=== PATIENT | male | born 1950 | race Caucasian/White ===

== ENCOUNTER 2017-11-28 07:29 | Inpatient (IN) | payer MEDICARE, OTHER ==
[2017-11-28] VITALS (17 sets, daily range): BP systolic 102–117; BP diastolic 51–84
[~2017-11-28] VITALS: Ht 170.2 cm; Wt 70.5 kg
[2017-11-28] MEDS ORDERED: normal saline 1000ML IV soln IV ONE (07:50)
[2017-11-28] MEDS ORDERED: LORazepam 2 mg/ml vial IV ONE (07:55)
[2017-11-28] MEDS ORDERED: metoclopramide 5 mg/ml inj IV ONE (07:55)
[2017-11-28] MEDS ORDERED: diphenhydrAMINE 50 mg/ml inj IV ONE (07:55)
[2017-11-28 08:20] LABS: BASOPHILS % (AUTO) 0 % (0-1); EOSINOPHILS # (AUTO) 0.2 X10'3 (0-0.9); EOSINOPHILS % (AUTO) 0.8 % (0-6); LYMPHOCYTES % (AUTO) 7.2 % (21-51); MEAN CORPUSCULAR HEMOGLOBIN 37.2 PG (27.0-31.0); MEAN CORPUSCULAR HGB CONC 34.8 % (33.0-36.5); MEAN CORPUSCULAR VOLUME 106.9 FL (78-98); MEAN PLATELET VOLUME 8.7 FL (7.4-10.4); MONOCYTES # (AUTO) 0.9 X10'3 (0-0.9); MONOCYTES % (AUTO) 3.2 % (2-12); NEUTROPHILS # (AUTO) 24.4 X10'3 (1.8-7.7); NEUTROPHILS % (AUTO) 88.8 % (42-75); PLATELET COUNT 331 X10'3 (140-440); RED BLOOD COUNT 1.43 X10'6 (4.70-6.10); RED CELL DISTRIBUTION WIDTH 15.1 % (11.5-14.5)
[2017-11-28 08:22] LABS: PARTIAL THROMBOPLASTIN TIME 21 SECONDS (22-32); PROTHROMBIN TIME 10.2 SECONDS (9.0-12.0)
[2017-11-28 08:33] LABS: HEMOGLOBIN 5.3 g/dl (14.0-17.9)
[2017-11-28 08:34] LABS: HEMATOCRIT 15.3 % (42.0-52.0)
[2017-11-28 08:35] LABS: WHITE BLOOD COUNT 27.5 X10'3 (4.5-11.0)
[2017-11-28 08:38] LABS: ALANINE AMINOTRANSFERASE 30 U/L (12-78); ALBUMIN 3.7 G/DL (3.4-5.0); ALKALINE PHOSPHATASE 68 IU/L (46-116); ANION GAP 19 (8-16); BILIRUBIN,TOTAL 7.1 MG/DL (0.1-1.0); BLOOD UREA NITROGEN 27 MG/DL (7-18); BUN/CREATININE RATIO 23.1 (5.4-32.0); CALCIUM 8.8 MG/DL (8.5-10.1); CHLORIDE 99 MMOL/L (99-107); CREATININE 1.17 MG/DL (0.60-1.10); GLUCOSE 243 MG/DL (70-104); SODIUM 136 MMOL/L (135-145); TOTAL CARBON DIOXIDE 17.9 MMOL/L (24-32); eGFR 63 ML/MIN
[2017-11-28 08:39] LABS: MAGNESIUM 1.7 MG/DL (1.5-2.4); TROPONIN I < 0.04 NG/ML (0.0-0.05)
[2017-11-28 08:47] LABS: LACTIC SEPSIS 9.4 MMOL/L (0.4-2.0)
[2017-11-28] MEDS ORDERED: piperacillin/tazo 3.375gm/50ml 50 ML IV ONE (08:50)
[2017-11-28] MEDS ORDERED: vancomycin/NS 1 GM ADD-VANTAGE 250 ML IV ONE (08:50)
[2017-11-28 08:51] LABS: ASPARTATE AMINO TRANSFERASE 69 U/L (10-37)
[2017-11-28] MEDS ORDERED: iohexol 300mg/ml 100ml inj. ONE (09:08)
[2017-11-28 09:23] LABS: ALBUMIN/GLOBULIN RATIO 1.2 (1.1-1.5); POTASSIUM 4.5 MMOL/L (3.5-5.1); TOTAL PROTEIN 6.9 G/DL (6.4-8.2)
[2017-11-28 09:24] LABS: NUCLEATED RED BLOOD CELLS 7 /100WBC (0-0); TOTAL CELLS COUNTED 100
[2017-11-28 09:25] LABS: RED BLOOD COUNT 1.3 X10'6 (4.70-6.10)
[2017-11-28 09:25] LABS: PLATELET ESTIMATE NORMAL
[2017-11-28 09:26] LABS: POLYCHROMASIA 2+
[2017-11-28 09:27] LABS: ANISOCYTOSIS 2+; POIKILOCYTOSIS 2+; SCHISTOCYTES FEW
[2017-11-28 09:28] LABS: TARGET CELLS FEW
[2017-11-28 09:29] LABS: BURR CELLS FEW
[2017-11-28 09:34] LABS: TOTAL IRON BINDING CAPACITY 308 UG/DL (259-388)
[2017-11-28 09:36] LABS: % IRON SATURATION 97 % (11-46); IRON 298 UG/DL (53-167)
[2017-11-28 09:51] LABS: LACTATE DEHYDROGENASE 776 U/L (85-227)
[2017-11-28 09:53] LABS: D-DIMER 1.35 MG/L FEU (0-0.50)
[2017-11-28] MEDS: normal saline 1000ml 1,000 ML IV SCH (10:32)
[2017-11-28] MEDS ORDERED: acetaminophen 325mg tablet PO PRN ×2 (10:35)
[2017-11-28] MEDS ORDERED: potassium Cl 20 mEq SR tablet PO PRN (10:35)
[2017-11-28] MEDS ORDERED: potassium Cl 40MEQ/NS 500ml 500 ML IV PRN ×2 (10:35)
[2017-11-28] MEDS ORDERED: morphine 4 MG/ML inj SYRINge IV PRN ×2 (10:35)
[2017-11-28] MEDS ORDERED: ondansetron/PF 4mg/2ml inj IV PRN (10:35)
[2017-11-28 13:07] LABS: CLARITY,URINE CLOUDY (Clear); COLOR,URINE BROWN (Yellow)
[2017-11-28 13:15] LABS: UA COLLECTION TYPE CLN CATCH MIDSTREAM
[2017-11-28 13:17] LABS: URINE AMPHETAMINE SCREEN NEGATIVE (Neg); URINE BARBITUATE SCREEN NEGATIVE (Neg); URINE BENZODIAZEPINES SCREEN NEGATIVE (Neg); URINE CANNABINOID SCREEN NEGATIVE (Neg); URINE COCAINE SCREEN NEGATIVE (Neg); URINE METHADONE SCREEN NEGATIVE (Neg); URINE OPIATE SCREEN NEGATIVE (Neg); URINE PHENCYCLIDINE SCREEN NEGATIVE (Neg)
[2017-11-28 13:21] LABS: BACTERIA,URINE FEW /HPF (Neg); RBC,URINE 0-2 /HPF (0-2); WBC,URINE 0-4 /HPF (0-4)
[2017-11-28 13:22] LABS: SQUAMOUS EPITHELIAL CELL,UR FEW /LPF (FEW)
[2017-11-28 13:24] LABS: AMORPHOUS URATES 1+
[2017-11-28] MEDS ORDERED: NO HOME MEDS (13:53)
[2017-11-29] VITALS (22 sets, daily range): BP systolic 87–132; BP diastolic 49–76
[2017-11-29 05:15] LABS: MEAN CORPUSCULAR HEMOGLOBIN 34.1 PG (27.0-31.0); MEAN CORPUSCULAR HGB CONC 34.5 % (33.0-36.5); MEAN PLATELET VOLUME 8.6 FL (7.4-10.4); PLATELET COUNT 211 X10'3 (140-440); RED BLOOD COUNT 1.66 X10'6 (4.70-6.10); RED CELL DISTRIBUTION WIDTH 19.7 % (11.5-14.5); WHITE BLOOD COUNT 21.7 X10'3 (4.5-11.0)
[2017-11-29 05:30] LABS: ALANINE AMINOTRANSFERASE 29 U/L (12-78); ALBUMIN/GLOBULIN RATIO 1.1 (1.1-1.5); ALKALINE PHOSPHATASE 54 IU/L (46-116); ANION GAP 7 (8-16); ASPARTATE AMINO TRANSFERASE 87 U/L (10-37); BILIRUBIN,TOTAL 3.4 MG/DL (0.1-1.0); BLOOD UREA NITROGEN 21 MG/DL (7-18); BUN/CREATININE RATIO 29.6 (5.4-32.0); CALCIUM 7.9 MG/DL (8.5-10.1); CHLORIDE 105 MMOL/L (99-107); CREATININE 0.71 MG/DL (0.60-1.10); GLUCOSE 113 MG/DL (70-104); MAGNESIUM 1.8 MG/DL (1.5-2.4); SODIUM 138 MMOL/L (135-145); TOTAL CARBON DIOXIDE 25.9 MMOL/L (24-32); TOTAL PROTEIN 5.7 G/DL (6.4-8.2); eGFR > 90 ML/MIN
[2017-11-29 05:31] LABS: POTASSIUM 3.7 MMOL/L (3.5-5.1)
[2017-11-29 05:35] LABS: HEMATOCRIT 16.5 % (42.0-52.0); HEMOGLOBIN 5.7 g/dl (14.0-17.9)
[2017-11-29 05:38] LABS: NEUTROPHILS % (MANUAL) 80 % (42-75); TOTAL CELLS COUNTED 100
[2017-11-29 05:39] LABS: ANISOCYTOSIS 2+; LYMPHOCYTES % (MANUAL) 13 % (21-51); MONOCYTES % (MANUAL) 7 % (2-12); NUCLEATED RED BLOOD CELLS 8 /100WBC (0-0); PLATELET ESTIMATE NORMAL
[2017-11-29 05:40] LABS: POLYCHROMASIA 2+
[2017-11-29] MEDS: normal saline 1000ml 1,000 ML IV SCH (05:49)
[2017-11-29 09:39] LABS: LACTATE DEHYDROGENASE 938 U/L (85-227)
[2017-11-29 09:52] LABS: CLARITY,URINE CLEAR (Clear); COLOR,URINE BROWN (Yellow); GLUCOSE, URINE NEGATIVE (Neg); KETONES,URINE 15 mg/dl (Neg); LEUKOCYTE ESTERASE ,URINE NEGATIVE (Neg); OCCULT BLOOD,URINE SMALL (Neg); PH,URINE 5.5 (4.8-8.0); PROTEIN,URINE TRACE mg/dl (Neg)
[2017-11-29 10:43] LABS: UA COLLECTION TYPE NON-SPECIFIED
[2017-11-29 10:51] LABS: AMORPHOUS URATES 1+; BACTERIA,URINE FEW /HPF (Neg); HYALINE CASTS 0-3 /LPF (NEGATIVE); MUCUS STRANDS FEW /LPF (Neg); RBC,URINE 0-2 /HPF (0-2); SQUAMOUS EPITHELIAL CELL,UR FEW /LPF (FEW); WBC,URINE 0-4 /HPF (0-4)
[2017-11-29] MEDS: enoxaparin 40mg/0.4ml syringe SQ SCH (12:34)
[2017-11-29 18:40] LABS: BASOPHILS # (AUTO) 0.3 X10'3 (0-0.2); EOSINOPHILS # (AUTO) 0.2 X10'3 (0-0.9); EOSINOPHILS % (AUTO) 0.9 % (0-6); HEMOGLOBIN 8.2 g/dl (14.0-17.9); LYMPHOCYTES # (AUTO) 3.2 X10'3 (1.1-4.8); LYMPHOCYTES % (AUTO) 12.1 % (21-51); MEAN CORPUSCULAR HEMOGLOBIN 32.6 PG (27.0-31.0); MEAN CORPUSCULAR HGB CONC 34.1 % (33.0-36.5); MEAN CORPUSCULAR VOLUME 95.6 FL (78-98); MEAN PLATELET VOLUME 8.6 FL (7.4-10.4); MONOCYTES # (AUTO) 1.8 X10'3 (0-0.9); MONOCYTES % (AUTO) 6.9 % (2-12); NEUTROPHILS # (AUTO) 20.8 X10'3 (1.8-7.7); NEUTROPHILS % (AUTO) 79.1 % (42-75); PLATELET COUNT 214 X10'3 (140-440); RED BLOOD COUNT 2.51 X10'6 (4.70-6.10); RED CELL DISTRIBUTION WIDTH 17.6 % (11.5-14.5)
[2017-11-29 18:47] LABS: WHITE BLOOD COUNT 26.3 X10'3 (4.5-11.0)
[2017-11-29 19:12] LABS: ANISOCYTOSIS 2+; NUCLEATED RED BLOOD CELLS 9 /100WBC (0-0); PLATELET ESTIMATE NORMAL; POLYCHROMASIA 2+; TOTAL CELLS COUNTED 100
[2017-11-29 19:13] LABS: MICROCYTOSIS 1+
[2017-11-29] MEDS: HYDROcodone/acetaminophen 10/325mg tab PO PRN (19:25)
[2017-11-30] VITALS: BP 124/70
[2017-11-30 05:20] LABS: BASOPHILS % (AUTO) 0.2 % (0-1); EOSINOPHILS # (AUTO) 0.1 X10'3 (0-0.9); EOSINOPHILS % (AUTO) 0.4 % (0-6); HEMATOCRIT 23.2 % (42.0-52.0); HEMOGLOBIN 7.9 g/dl (14.0-17.9); LYMPHOCYTES # (AUTO) 2.4 X10'3 (1.1-4.8); LYMPHOCYTES % (AUTO) 10.3 % (21-51); MEAN CORPUSCULAR HGB CONC 34.2 % (33.0-36.5); MEAN CORPUSCULAR VOLUME 96.4 FL (78-98); MEAN PLATELET VOLUME 8.6 FL (7.4-10.4); MONOCYTES # (AUTO) 1.7 X10'3 (0-0.9); MONOCYTES % (AUTO) 7.3 % (2-12); NEUTROPHILS # (AUTO) 19.1 X10'3 (1.8-7.7); NEUTROPHILS % (AUTO) 81.8 % (42-75); PLATELET COUNT 198 X10'3 (140-440); RED CELL DISTRIBUTION WIDTH 16.9 % (11.5-14.5); WHITE BLOOD COUNT 23.4 X10'3 (4.5-11.0)
[2017-11-30 05:44] LABS: ALANINE AMINOTRANSFERASE 35 U/L (12-78); ALBUMIN/GLOBULIN RATIO 1.1 (1.1-1.5); ALKALINE PHOSPHATASE 59 IU/L (46-116); ANION GAP 8 (8-16); ASPARTATE AMINO TRANSFERASE 49 U/L (10-37); BILIRUBIN,TOTAL 1.3 MG/DL (0.1-1.0); BLOOD UREA NITROGEN 11 MG/DL (7-18); BUN/CREATININE RATIO 13.4 (5.4-32.0); CALCIUM 8.1 MG/DL (8.5-10.1); CHLORIDE 103 MMOL/L (99-107); CREATININE 0.82 MG/DL (0.60-1.10); GLUCOSE 133 MG/DL (70-104); MAGNESIUM 1.5 MG/DL (1.5-2.4); PHOSPHORUS 3.3 MG/DL (2.3-4.5); POTASSIUM 3.3 MMOL/L (3.5-5.1); SODIUM 139 MMOL/L (135-145); TOTAL CARBON DIOXIDE 27.7 MMOL/L (24-32); TOTAL PROTEIN 5.8 G/DL (6.4-8.2); eGFR > 90 ML/MIN
[2017-11-30 06:34] LABS: ANISOCYTOSIS 1+; PLATELET ESTIMATE NORMAL; POLYCHROMASIA 2+; TOTAL CELLS COUNTED 100
[2017-11-30 06:35] LABS: MICROCYTOSIS 1+; NUCLEATED RED BLOOD CELLS 6 /100WBC (0-0)
[2017-11-30 06:51] VITALS: BP 124/70
[2017-11-30] MEDS: potassium Cl 20 mEq SR tablet PO PRN ×3 (07:14→20:48)
[2017-11-30] MEDS: enoxaparin 40mg/0.4ml syringe SQ SCH (07:15)
[2017-11-30] MEDS: HYDROcodone/acetaminophen 10/325mg tab PO PRN (07:29)
[2017-11-30] MEDS: LORazepam 1 MG tablet PO PRN ×2 (10:47→20:48)
[2017-11-30 11:13] VITALS: BP 112/66
[2017-11-30] MEDS: predniSONE 20 mg tablet PO SCH (11:25)
[2017-11-30 14:50] LABS: HIV ANTIBODY 1&2 RAPID NON-REACTIVE (Neg)
[2017-11-30 19:08] VITALS: BP 115/65
[2017-11-30 23:30] VITALS: BP 131/67
[2017-12-01 04:42] LABS: BASOPHILS % (AUTO) 0.1 % (0-1); EOSINOPHILS # (AUTO) 0.2 X10'3 (0-0.9); EOSINOPHILS % (AUTO) 1.5 % (0-6); LYMPHOCYTES # (AUTO) 1.8 X10'3 (1.1-4.8); LYMPHOCYTES % (AUTO) 13.9 % (21-51); MEAN CORPUSCULAR HEMOGLOBIN 33.1 PG (27.0-31.0); MEAN CORPUSCULAR HGB CONC 33.6 % (33.0-36.5); MEAN CORPUSCULAR VOLUME 98.3 FL (78-98); MONOCYTES # (AUTO) 1.2 X10'3 (0-0.9); MONOCYTES % (AUTO) 9.5 % (2-12); NEUTROPHILS # (AUTO) 9.6 X10'3 (1.8-7.7); PLATELET COUNT 167 X10'3 (140-440); RED BLOOD COUNT 2.13 X10'6 (4.70-6.10); RED CELL DISTRIBUTION WIDTH 17.2 % (11.5-14.5); WHITE BLOOD COUNT 12.9 X10'3 (4.5-11.0)
[2017-12-01 04:49] LABS: HEMATOCRIT 20.9 % (42.0-52.0)
[2017-12-01 05:15] LABS: ALANINE AMINOTRANSFERASE 37 U/L (12-78); ALBUMIN 2.8 G/DL (3.4-5.0); ALKALINE PHOSPHATASE 56 IU/L (46-116); ANION GAP 7 (8-16); ASPARTATE AMINO TRANSFERASE 32 U/L (10-37); BILIRUBIN,TOTAL 0.8 MG/DL (0.1-1.0); BLOOD UREA NITROGEN 13 MG/DL (7-18); BUN/CREATININE RATIO 19.7 (5.4-32.0); CALCIUM 8.4 MG/DL (8.5-10.1); CHLORIDE 105 MMOL/L (99-107); CREATININE 0.66 MG/DL (0.60-1.10); GLUCOSE 106 MG/DL (70-104); MAGNESIUM 2.1 MG/DL (1.5-2.4); PHOSPHORUS 3.7 MG/DL (2.3-4.5); POTASSIUM 3.7 MMOL/L (3.5-5.1); SODIUM 139 MMOL/L (135-145); TOTAL CARBON DIOXIDE 26.9 MMOL/L (24-32); TOTAL PROTEIN 5.7 G/DL (6.4-8.2); eGFR > 90 ML/MIN
[2017-12-01 07:01] VITALS: BP 122/76
[2017-12-01] MEDS: enoxaparin 40mg/0.4ml syringe SQ SCH (08:00)
[2017-12-01] MEDS: predniSONE 20 mg tablet PO SCH (08:09)
[2017-12-01] MEDS: LORazepam 1 MG tablet PO PRN ×2 (08:09→16:51)
[2017-12-01] MEDS: pantoprazole 40mg Tablet.DR PO SCH (08:09)
[2017-12-01] MEDS: magnesium hydroxide 30ml (MOM) UD suspension PO PRN (08:16)
[2017-12-01 11:09] LABS: LACTATE DEHYDROGENASE 548 U/L (85-227)
[2017-12-01 11:53] VITALS: BP 97/66
[2017-12-01 20:00] VITALS: BP 108/60
[2017-12-02] VITALS: BP 130/70
[2017-12-02] MEDS: LORazepam 1 MG tablet PO PRN ×2 (04:50→16:54)
[2017-12-02 05:34] LABS: BASOPHILS % (AUTO) 0.1 % (0-1); EOSINOPHILS % (AUTO) 0.2 % (0-6); HEMATOCRIT 23.2 % (42.0-52.0); HEMOGLOBIN 7.6 g/dl (14.0-17.9); LYMPHOCYTES # (AUTO) 2.3 X10'3 (1.1-4.8); LYMPHOCYTES % (AUTO) 20.6 % (21-51); MEAN CORPUSCULAR HEMOGLOBIN 32.7 PG (27.0-31.0); MEAN CORPUSCULAR VOLUME 99.3 FL (78-98); MEAN PLATELET VOLUME 8.1 FL (7.4-10.4); MONOCYTES # (AUTO) 0.9 X10'3 (0-0.9); MONOCYTES % (AUTO) 8.1 % (2-12); NEUTROPHILS # (AUTO) 7.9 X10'3 (1.8-7.7); PLATELET COUNT 175 X10'3 (140-440); RED BLOOD COUNT 2.34 X10'6 (4.70-6.10); RED CELL DISTRIBUTION WIDTH 27.4 % (11.5-14.5); WHITE BLOOD COUNT 11.2 X10'3 (4.5-11.0)
[2017-12-02 06:29] LABS: ALANINE AMINOTRANSFERASE 40 U/L (12-78); ALBUMIN 2.8 G/DL (3.4-5.0); ALKALINE PHOSPHATASE 56 IU/L (46-116); ANION GAP 9 (8-16); ASPARTATE AMINO TRANSFERASE 20 U/L (10-37); BILIRUBIN,TOTAL 0.3 MG/DL (0.1-1.0); BLOOD UREA NITROGEN 11 MG/DL (7-18); BUN/CREATININE RATIO 16.7 (5.4-32.0); CALCIUM 8.6 MG/DL (8.5-10.1); CHLORIDE 108 MMOL/L (99-107); CREATININE 0.66 MG/DL (0.60-1.10); GLUCOSE 90 MG/DL (70-104); LACTATE DEHYDROGENASE 420 U/L (85-227); MAGNESIUM 2.2 MG/DL (1.5-2.4); PHOSPHORUS 4.5 MG/DL (2.3-4.5); POTASSIUM 3.6 MMOL/L (3.5-5.1); SODIUM 144 MMOL/L (135-145); TOTAL CARBON DIOXIDE 26.6 MMOL/L (24-32); TOTAL PROTEIN 5.7 G/DL (6.4-8.2); eGFR > 90 ML/MIN
[2017-12-02 07:00] VITALS: BP 101/71
[2017-12-02 07:09] LABS: ANISOCYTOSIS 3+; HYPOCHROMASIA 1+; PLATELET ESTIMATE NORMAL; TARGET CELLS 1+
[2017-12-02] MEDS: enoxaparin 40mg/0.4ml syringe SQ SCH (08:39)
[2017-12-02] MEDS: predniSONE 20 mg tablet PO SCH (08:39)
[2017-12-02] MEDS: pantoprazole 40mg Tablet.DR PO SCH (08:40)
[2017-12-02 11:00] VITALS: BP 116/74
[2017-12-02] MEDS: magnesium hydroxide 30ml (MOM) UD suspension PO PRN (15:03)
[2017-12-02 20:00] VITALS: BP 131/73
[2017-12-03] VITALS: BP 106/59
[2017-12-03] MEDS: LORazepam 1 MG tablet PO PRN (05:08)
[2017-12-03 05:10] LABS: BASOPHILS % (AUTO) 0.1 % (0-1); EOSINOPHILS # (AUTO) 0.2 X10'3 (0-0.9); EOSINOPHILS % (AUTO) 1.6 % (0-6); HEMATOCRIT 23.5 % (42.0-52.0); HEMOGLOBIN 7.7 g/dl (14.0-17.9); LYMPHOCYTES # (AUTO) 2.5 X10'3 (1.1-4.8); LYMPHOCYTES % (AUTO) 21.4 % (21-51); MEAN CORPUSCULAR HEMOGLOBIN 32.2 PG (27.0-31.0); MEAN CORPUSCULAR HGB CONC 32.6 % (33.0-36.5); MEAN CORPUSCULAR VOLUME 98.7 FL (78-98); MEAN PLATELET VOLUME 7.9 FL (7.4-10.4); MONOCYTES # (AUTO) 0.9 X10'3 (0-0.9); MONOCYTES % (AUTO) 7.4 % (2-12); NEUTROPHILS # (AUTO) 8.2 X10'3 (1.8-7.7); NEUTROPHILS % (AUTO) 69.5 % (42-75); PLATELET COUNT 203 X10'3 (140-440); RED BLOOD COUNT 2.38 X10'6 (4.70-6.10); RED CELL DISTRIBUTION WIDTH 25.8 % (11.5-14.5); WHITE BLOOD COUNT 11.7 X10'3 (4.5-11.0)
[2017-12-03 05:47] LABS: ALANINE AMINOTRANSFERASE 37 U/L (12-78); ALBUMIN 2.8 G/DL (3.4-5.0); ALKALINE PHOSPHATASE 57 IU/L (46-116); ANION GAP 8 (8-16); ASPARTATE AMINO TRANSFERASE 15 U/L (10-37); BILIRUBIN,TOTAL 0.4 MG/DL (0.1-1.0); BLOOD UREA NITROGEN 11 MG/DL (7-18); BUN/CREATININE RATIO 14.3 (5.4-32.0); CALCIUM 8.6 MG/DL (8.5-10.1); CHLORIDE 108 MMOL/L (99-107); CREATININE 0.77 MG/DL (0.60-1.10); GLUCOSE 80 MG/DL (70-104); LACTATE DEHYDROGENASE 351 U/L (85-227); MAGNESIUM 2.3 MG/DL (1.5-2.4); PHOSPHORUS 4.9 MG/DL (2.3-4.5); POTASSIUM 3.8 MMOL/L (3.5-5.1); SODIUM 145 MMOL/L (135-145); TOTAL CARBON DIOXIDE 29.2 MMOL/L (24-32); TOTAL PROTEIN 5.5 G/DL (6.4-8.2); eGFR > 90 ML/MIN
[2017-12-03 06:54] VITALS: BP 134/84
[2017-12-03] MEDS: predniSONE 20 mg tablet PO SCH (07:24)
[2017-12-03] MEDS: pantoprazole 40mg Tablet.DR PO SCH (07:24)
[2017-12-03] MEDS: enoxaparin 40mg/0.4ml syringe SQ SCH (07:25)
[2017-12-03 07:29] LABS: ANISOCYTOSIS 3+; PLATELET ESTIMATE DECREASED
[2017-12-03 07:30] LABS: POLYCHROMASIA 3+
[2017-12-03 11:35] VITALS: BP 137/81
[2017-12-03] MEDS ORDERED: ATI1T PO (13:35)
[2017-12-03] MEDS ORDERED: PRED20TA PO (13:35)
[2017-12-03] MEDS ORDERED: PANT40TA4 PO (13:35)
== END 2017-12-03 14:43 | disposition home or self-care (01) | DRG 809 ==
LOC: ER 07:29 → ICU 2S 10:32 → SUR 3N 11-29 15:20
PROVIDERS: ADMIT Internal Medicine Critical Care Medicine; ATTEND Internal Medicine
PROC: 30233N1 Transfusion of Nonautologous Red Blood Cells into Peripheral Vein, Percutaneous Approach (ICD-10-PCS; principal; 2017-11-28)
DX: D59.9 Acquired hemolytic anemia, unspecified (principal); E87.2 Acidosis; N17.9 Acute kidney failure, unspecified; D72.829 Elevated white blood cell count, unspecified; F41.9 Anxiety disorder, unspecified; F17.210 Nicotine dependence, cigarettes, uncomplicated; M79.1 Myalgia; R74.0 Nonspecific elevation of levels of transaminase and lactic acid dehydrogenase [LDH]; Z93.3 Colostomy status; Z90.49 Acquired absence of other specified parts of digestive tract
CPT/HCPCS: 36415; 71045; 74176; 80053; 80305; 81001; 82140; 83010; 83540; 83550; 83605; 83615; 83735; 83880; 84100; 84145; 84443; 84484; 85025; 85045; 85379; 85384; 85610; 85651; 85730; 86703; 86803; 86885; 86900; 86901; 86920; 87040; 87070; 88184; 88185; 93005; A6213; J1200; J1650; J2060; J2270; J2543; J2765; J3370; J7030; J7512; P9016; Q9967